=== PATIENT | female | born 1935 | race Caucasian/White ===

== ENCOUNTER 2020-10-25 13:49 | Inpatient (IN) ==
[2020-10-25] MEDS ORDERED: Celecoxib 100 MG CAPSULE PO PRN (15:26)
[2020-10-25] MEDS ORDERED: Ipratropium/Albuterol Neb 3 ML IH PRN (15:26)
[2020-10-25] MEDS: *HR* Metformin 500 MG TABLET PO SCH (17:30)
[2020-10-25] MEDS: Pregabalin 75 MG CAPSULE PO SCH (20:00)
[2020-10-26] MEDS: Spironolactone 25 MG TABLET PO SCH (08:17)
[2020-10-26] MEDS: *HR* Metformin 500 MG TABLET PO SCH ×2 (08:17→15:17)
[2020-10-26] MEDS: Metoprolol XL (24 HR) Succ 25 MG TAB.ER.24H PO SCH (08:17)
[2020-10-26] MEDS: amLODIPine 5 MG TABLET PO SCH (08:18)
[2020-10-26] MEDS: Aspirin 81 MG TAB.CHEW PO SCH (08:18)
[2020-10-26] MEDS: Pregabalin 75 MG CAPSULE PO SCH ×3 (08:18→20:05)
[2020-10-27] MEDS: Pregabalin 75 MG CAPSULE PO SCH ×3 (08:26→20:14)
[2020-10-27] MEDS: Metoprolol XL (24 HR) Succ 25 MG TAB.ER.24H PO SCH (08:26)
[2020-10-27] MEDS: Spironolactone 25 MG TABLET PO SCH (08:26)
[2020-10-27] MEDS: amLODIPine 5 MG TABLET PO SCH (08:27)
[2020-10-27] MEDS: *HR* Metformin 500 MG TABLET PO SCH ×2 (08:27→18:52)
[2020-10-27] MEDS: Aspirin 81 MG TAB.CHEW PO SCH (08:27)
[2020-10-28] MEDS: Aspirin 81 MG TAB.CHEW PO SCH (09:47)
[2020-10-28] MEDS: Pregabalin 75 MG CAPSULE PO SCH ×3 (09:47→20:04)
[2020-10-28] MEDS: Metoprolol XL (24 HR) Succ 25 MG TAB.ER.24H PO SCH (09:47)
[2020-10-28] MEDS: *HR* Metformin 500 MG TABLET PO SCH ×2 (09:47→18:03)
[2020-10-28] MEDS: Spironolactone 25 MG TABLET PO SCH (09:47)
[2020-10-28] MEDS: amLODIPine 5 MG TABLET PO SCH (09:48)
[2020-10-28] MEDS: Insulin LISPRO 300 UNITS/3 ML VIAL SQ SCH ×3 (18:03→20:07)
[2020-10-28] MEDS ORDERED: Acetaminophen 325 MG TABLET PO PRN (19:38)
[2020-10-29] MEDS: Insulin LISPRO 300 UNITS/3 ML VIAL SQ SCH ×4 (09:09→21:32)
[2020-10-29] MEDS: Aspirin 81 MG TAB.CHEW PO SCH (09:32)
[2020-10-29] MEDS: *HR* Metformin 500 MG TABLET PO SCH ×2 (09:32→16:48)
[2020-10-29] MEDS: Spironolactone 25 MG TABLET PO SCH (09:32)
[2020-10-29] MEDS: amLODIPine 5 MG TABLET PO SCH (09:32)
[2020-10-29] MEDS: Metoprolol XL (24 HR) Succ 25 MG TAB.ER.24H PO SCH (09:33)
[2020-10-29] MEDS: Pregabalin 75 MG CAPSULE PO SCH ×3 (09:33→21:31)
[2020-10-30] MEDS: Insulin LISPRO 300 UNITS/3 ML VIAL SQ SCH ×4 (07:33→20:30)
[2020-10-30] MEDS: Aspirin 81 MG TAB.CHEW PO SCH (08:54)
[2020-10-30] MEDS: Pregabalin 75 MG CAPSULE PO SCH ×3 (08:54→20:31)
[2020-10-30] MEDS: amLODIPine 5 MG TABLET PO SCH (08:54)
[2020-10-30] MEDS: Spironolactone 25 MG TABLET PO SCH (08:54)
[2020-10-30] MEDS: *HR* Metformin 500 MG TABLET PO SCH ×2 (08:54→16:40)
[2020-10-30] MEDS: Metoprolol XL (24 HR) Succ 25 MG TAB.ER.24H PO SCH (08:54)
[2020-10-31] MEDS: Insulin LISPRO 300 UNITS/3 ML VIAL SQ SCH ×4 (08:34→19:34)
[2020-10-31] MEDS: *HR* Metformin 500 MG TABLET PO SCH ×2 (08:35→16:10)
[2020-10-31] MEDS: Pregabalin 75 MG CAPSULE PO SCH ×3 (08:35→20:38)
[2020-10-31] MEDS: Spironolactone 25 MG TABLET PO SCH (08:35)
[2020-10-31] MEDS: Metoprolol XL (24 HR) Succ 25 MG TAB.ER.24H PO SCH (08:35)
[2020-10-31] MEDS: amLODIPine 5 MG TABLET PO SCH (08:35)
[2020-10-31] MEDS: Aspirin 81 MG TAB.CHEW PO SCH (08:35)
[2020-11-01] MEDS: Insulin LISPRO 300 UNITS/3 ML VIAL SQ SCH ×4 (07:36→20:08)
[2020-11-01] MEDS: amLODIPine 5 MG TABLET PO SCH (09:15)
[2020-11-01] MEDS: Pregabalin 75 MG CAPSULE PO SCH ×3 (09:15→20:09)
[2020-11-01] MEDS: Aspirin 81 MG TAB.CHEW PO SCH (09:15)
[2020-11-01] MEDS: Metoprolol XL (24 HR) Succ 25 MG TAB.ER.24H PO SCH (09:15)
[2020-11-01] MEDS: Spironolactone 25 MG TABLET PO SCH (09:15)
[2020-11-01] MEDS: *HR* Metformin 500 MG TABLET PO SCH ×2 (09:16→16:10)
[2020-11-01 14:03] LABS: Hematocrit 40.5 % (35.3-44.9); Hemoglobin 13.3 g/dL (11.5-15.4); Mean Corpuscular HGB Conc 32.8 g/dL (31.6-35.5); Mean Corpuscular Hemoglobin 30.6 pg (28.0-33.3); Mean Corpuscular Volume 93.1 fL (83.0-100.0); Mean Platelet Volume 10.3 fL (9.4-12.4); Platelet Count 201 K/mcL (140-400); Red Blood Count 4.35 M/mcL (3.82-4.97); White Blood Count 8.1 K/mcL (4.3-11.1)
[2020-11-01 14:17] LABS: BUN/Creatinine Ratio 30 (6-26); Blood Urea Nitrogen 29 mg/dL (8-23); Calcium 8.9 mg/dL (8.6-10.3); Carbon Dioxide 26 mEq/L (23-29); Chloride 102 mEq/L (98-107); Glucose 129 mg/dL (70-105); Magnesium 1.8 mg/dL (1.6-2.6); Osmolality,Calculated 292 (280-300); Potassium 4.5 mEq/L (3.5-5.1); Sodium 137 mEq/L (136-145); eGFR For African Americans > 60 (> 60); eGFR For Non-African Americans 54 (> 60)
[2020-11-02] MEDS: Insulin LISPRO 300 UNITS/3 ML VIAL SQ SCH ×2 (08:23→12:19)
[2020-11-02] MEDS: Aspirin 81 MG TAB.CHEW PO SCH (08:54)
[2020-11-02] MEDS: amLODIPine 5 MG TABLET PO SCH (08:54)
[2020-11-02] MEDS: Spironolactone 25 MG TABLET PO SCH (08:55)
[2020-11-02] MEDS: Pregabalin 75 MG CAPSULE PO SCH (08:55)
[2020-11-02] MEDS: Metoprolol XL (24 HR) Succ 25 MG TAB.ER.24H PO SCH (08:55)
[2020-11-02] MEDS: *HR* Metformin 500 MG TABLET PO SCH (08:55)
[2020-11-02 09:32] VITALS: BP 110/56
== END 2020-11-02 12:30 | disposition home health service (06) | DRG 690 ==
LOC: INPPIK 16:51
PROVIDERS: ADMIT Family Medicine; ATTEND Family Medicine